=== PATIENT | female | born 1990 | race Caucasian/White ===

== ENCOUNTER 2020-07-06 10:53 | Outpatient (CLI) | payer OTHER, SELFPAY ==
[2020-07-06 11:53] LABS: Alanine Aminotransferase 15 U/L (4-35); Albumin Level 4.4 g/dL (3.5-5.1); Alkaline Phosphatase 52 U/L (38-126); Anion Gap 11 mmol/L (8-16); Aspartate Amino Transferase 19 U/L (14-36); Bilirubin,Total 0.1 mg/dL (0.2-1.3); Blood Urea Nitrogen 12 mg/dL (7-17); Calcium 9.3 mg/dL (8.4-10.2); Carbon Dioxide 25 mmol/L (22-30); Chloride 107 mmol/L (98-107); Cholesterol 187 mg/dL (0-200); Estimated Glomerular Filt Rate > 60; Glucose 96 mg/dL (65-105); HDL Direct 31 mg/dL; Potassium 3.9 mmol/L (3.4-5.0); Sodium 143 mmol/L (137-145); Triglycerides 250 mg/dL (<150)
[2020-07-06 12:04] LABS: LDL Cholesterol Direct 112 mg/dL
[2020-07-06 12:34] LABS: Hemoglobin A1C 4.8 % (<5.7)
== END 2020-07-06 10:54 | disposition home or self-care (01) ==
LOC: ANHLAB 10:57
PROVIDERS: PCP Internal Medicine; Visit Provider Internal Medicine
DX: I10 Essential (primary) hypertension (principal); Z83.3 Family history of diabetes mellitus
CPT/HCPCS: 36415; 80053; 80061; 83036

== ENCOUNTER 2020-08-05 21:17 | Emergency (ER) | payer OTHER, SELFPAY ==
[2020-08-05] VITALS (7 sets, daily range): BP systolic 171–187; BP diastolic 106–126; PULSE 77–91; RESP 16–22; TEMP 36.6; O2SAT 95–100
--- NOTE | ~2020-08-05 | XR_ITS ---
EXAMINATION: XR chest 2V EXAM DATE: 08/05/2020 22:31 INDICATION: Elevated blood pressure for one month. Headache. TECHNIQUE: Frontal and lateral projections of the chest obtained and reviewed. There is no prior ana dy for comparison. FINDINGS: The lungs are clear. There are no pleural effusions. The cardiomediastinal silhouette is within normal limits. There is no pneumothorax suspected. The bones and soft tissues are unremarkab le. IMPRESSION: No acute cardiopulmonary findings. Reviewed, dictated and finalized at location A. RTISING ACCOUNT MANAGER
--- NOTE | 2020-08-05 21:36 | ECG_ITS ---
Measurements Intervals [place] Rate: 84 P: 21 [place]: 152 QRS: 9 QRSD: 109 T: 2 QT: 364 QTc: 430 Interpretive Statements SINUS RHYTHM BORDERLINE T WAVE ABNORMALITY- INFERIOR LEADS BORDERLINE ECG Electronically Signed On 08-06-2020 8:43:29 RADON INSPECTOR by Jose Angel Rodrigues D.O.
--- NOTE | 2020-08-05 21:36 | ED.GENADULT ---
HPI - General Adult General Chief complaint: Unspecified Stated complaint: high blood pressure Time Seen by Provider: 08/05/20 21:36 Source: patient and family Mode of arrival: ambulatory Limitations: no limitations History of Present Illness HPI narrative: Patient is a 30-year-old female with a history of anxiety who presents for evaluation of elevated blood pressure readings. Patient states that she has had elevated blood pressure readings over the past 3 weeks. Her recently had a heart attack, he has been monitoring his blood pressure at home, she started to have increased frequency of headache pain, was taking her blood pressure at home with measurements consistently 180s systolic. Patient was seen by Dr. York, her primary care physician in the office for blood pressure checks, consistently had elevated blood pressure, however Dr. York instructed the patient to lose weight and return to his office in 1 month for reassessment. She was not started on any antihypertensives. She states she recently had normal laboratory work-up. Patient is reporting intermittent headache, no headache currently. She does have a history of chronic headache pain. She denies chest pain, shortness of breath, nausea or vomiting. Related Data Home Medications Medication Instructions Recorded Confirmed duloxetine mg PO 08/05/20 lorazepam PRN 08/05/20 topiramate 08/05/20 Allergies Allergy/AdvReac Type Severity Reaction Status Date / Time cefaclor [From [facility]] Allergy Unknown Verified 08/05/20 21:38 Penicillins Allergy Unknown Verified 08/05/20 21:38 Review of Systems Review of Systems: Narrative: CONSTITUTIONAL: Denies fever, chills, or sweats. EYES: Denies visual changes, redness, or discharge. ENT: Denies rhinorrhea, congestion, sore throat, or otalgia. CARDIOVASCULAR: Denies chest pain, palpitations, or edema. RESPIRATORY: Denies cough or dyspnea. GASTROINTESTINAL: Denies abdominal pain, nausea, vomiting, or diarrhea. GENITOURINARY: Denies dysuria or hematuria. SKIN: Denies rash or itching. MUSCULOSKELETAL: Denies back pain, joint pain, or myalgia. NEUROLOGIC: Denies current headache, numbness, or weakness. [facility] Past Medical History Medical History Anxiety Surgical History Surgical History (Updated 08/05/20 @ 21:55 by Sendy Garcia MD) H/O section Social History Social History (Updated 08/05/20 @ 21:55 by Sendy Garcia MD) Smoking status: Never smoker Alcohol intake: never Substance use: current Substance use type: marijuana Living arrangements: with family Gender identity (if verbalized by the patient): Female Exam Narrative: Exam Narrative: GENERAL: Awake, alert, conversant HEAD: Normocephalic, atraumatic. EYES: PERRLA and EOMI. ENT: Nares clear, no rhinorrhea or epistaxis. Mucous membranes moist. NECK: Supple. CHEST: No respiratory distress, breathing even and non labored HEART: Regular rate, sinus rhythm ABDOMEN:Non distended, non tender EXTREMITIES: Normal range of motion. No edema. SKIN: Warm, dry, no rash. NEURO:No focal deficits. Alert and oriented x3 Course Vital Signs Vital signs: Vital Signs Temperature 36.6 C 08/05/20 21:24 Pulse Rate 89 08/05/20 21:24 Respiratory Rate 20 08/05/20 21:24 Blood Pressure 187/115 H 08/05/20 21:24 Pulse Oximetry 100 08/05/20 21:24 Temperature 36.6 C 08/05/20 21:24 Pulse Rate 91 08/05/20 22:01 Respiratory Rate 22 H 08/05/20 22:01 Blood Pressure 171/106 H 08/05/20 22:01 Pulse Oximetry 100 08/05/20 22:01 Medical Decision Making MDM Narrative Medical decision making narrative: Patient is a 30-year-old female who presented for evaluation of elevated blood pressure readings over the past month. The time of assessment, patient's blood pressure is elevated. IV access obtained and labs are drawn. Laboratory results are quite reassuring.
[2020-08-05] MEDS: hydroCHLOROthiazide 25 MG TABLET PO (21:58)
[2020-08-05 22:12] LABS: Basophils Absolute Auto 0.1 K/mm3 (0.0-0.1); Basophils Percent Auto 0.6 % (0.2-1.2); Eosinophils Absolute Auto 0.5 K/mm3 (0-0.3); Eosinophils Percent Auto 4.1 % (0-4.4); Hematocrit 38.3 % (37.0-47.0); Hemoglobin 12.8 g/dL (12.0-15.0); Immature Granulocyte Absolute 0.03 K/mm3 (0.00-0.031); Immature Granulocyte Percent A 0.3 % (0-0.5); Lymphocytes Absolute Auto 3.66 K/mm3 (0.9-3.2); Lymphocytes Percent Auto 31.8 % (18.3-44.2); Mean Corpuscular HGB Conc 33.4 g/dl (32-36); Mean Corpuscular Hemoglobin 30.4 pg (26-34); Mean Platelet Volume 9.9 fl (7.4-10.4); Monocytes Absolute Auto 0.8 K/mm3 (0.1-0.6); Monocytes Percent Auto 6.6 % (2.6-8.5); Neutrophils Absolute Auto 6.5 K/mm3 (1.3-6.7); Neutrophils Percent Auto 56.6 % (45.5-73.1); Platelet Count Result 381 k/mm3 (150-375); Red Blood Count 4.21 M/mm3 (4.2-5.4); Red Cell Distribution Width 12.7 % (11.5-14.5); White Blood Count 11.5 K/mm3 (4.5-10.0)
[2020-08-05 22:14] LABS: Add Urine Microscopic? NO; Appearance Urine Clear (Clear); Bilirubin Urine Negative (Negative); Blood Urine Negative (Negative); Color Urine Straw (Yellow); Glucose Urine UA Negative (Negative); Ketones Urine Negative (Negative); Leukocyte Esterase Ur Negative LEU/UL (Negative); Nitrate Urine Negative (Negative); Protein Urine Negative (Negative); Specific Grav Ur 1.011 (1.001-1.035); Urobilinogen Urine Negative mg/dL (<2.0)
[2020-08-05 22:16] LABS: INR 0.9
[2020-08-05 22:17] LABS: Partial Thromboplastin Time 32.3 SECONDS (22.3-36.8)
[2020-08-05 22:19] LABS: Anion Gap 10 mmol/L (8-16); Blood Urea Nitrogen 9 mg/dL (7-17); Calcium 9.6 mg/dL (8.4-10.2); Carbon Dioxide 24 mmol/L (22-30); Chloride 108 mmol/L (98-107); Estimated CRCL calculation 93 ml/min; Estimated Glomerular Filt Rate > 60; Glucose 89 mg/dL (65-105); Potassium 3.5 mmol/L (3.4-5.0); Sodium 142 mmol/L (137-145)
--- NOTE | 2020-08-05 22:26 | PC.NURSE ---
Patient taken to xray.
[2020-08-05 22:31] LABS: NT Pro B Type Natriuretic Pept 30 PG/ML (5-100); Troponin I < 0.012 ng/mL (0.000-0.034)
[2020-08-05] MEDS: hydrALAZINE HCL 20 MG/ML VIAL 10 MG IV PUSH (22:51)
== END 2020-08-05 23:38 | disposition home or self-care (01) ==
PROVIDERS: Emergency Provider Emergency Medicine; PCP Internal Medicine
DX: I10 Essential (primary) hypertension (principal); F41.9 Anxiety disorder, unspecified; R94.31 Abnormal electrocardiogram [ECG] [EKG]
CPT/HCPCS: 36415; 71046; 80048; 81003; 81025; 83880; 84484; 85025; 85610; 85730; 93005; 96374; 99284; A9270; J0360